=== PATIENT | female | born 1960 | race African-American/Black ===

== ENCOUNTER 2022-05-12 05:58 | Inpatient (IN) | payer MEDICARE, MEDICAID ==
[~2022-05-12] VITALS: Ht 177.8 cm; Wt 95.7 kg
[2022-05-12] MEDS ORDERED: BUME2TAB34 MT (08:00)
[2022-05-12] MEDS ORDERED: ATOR40TA70 PO (08:00)
[2022-05-12] MEDS ORDERED: ALBU2.5V13 NEB (08:00)
[2022-05-12] MEDS ORDERED: EZET-55 MT (08:00)
[2022-05-12] MEDS ORDERED: CHLO25TA2 PO (08:00)
[2022-05-12] MEDS ORDERED: METO-385 PO (08:00)
[2022-05-12] MEDS ORDERED: APIX5TAB PO (08:00)
[2022-05-12] MEDS ORDERED: LOSA1TAB37 MT (08:00)
[2022-05-12] MEDS ORDERED: DIGO250T79 PO (08:00)
[2022-05-12] MEDS ORDERED: PANT40TA51 PO (08:00)
[2022-05-12] MEDS ORDERED: SACU1TAB MT (08:00)
[2022-05-12] MEDS ORDERED: SPIR25TA PO (08:00)
[2022-05-12 08:07] LABS: BASOPHILS % 0.9 % (0.0-2.0); EOSINOPHILS % 1.1 % (0.0-5.0); HEMATOCRIT. 33.6 % (36.0-48.0); HEMOGLOBIN. 11.3 g/dL (12.0-16.0); LYMPHOCYTES % 21.1 % (20.0-50.0); MEAN CORPUSCULAR VOLUME 83.7 fL (81.0-99.0); MEAN PLATELET VOLUME 8.6 fl (7.4-10.4); NEUTROPHILS % 65.9 % (40.0-76.0); PLATELET 229 x1000/uL (130-400); RED BLOOD CELL COUNT 4.02 mill/uL (4.2-5.4); RED CELL DISTRIBUTION WIDTH 15.1 % (11.6-14.6)
[2022-05-12 08:16] LABS: INR 1.1; PROTHROMBIN TIME 11.4 sec (9.6-11.0)
[2022-05-12] MEDS ORDERED: SUCCINYLCHOLINE CHLORIDE 200MG/10ML IV ONE (08:26)
[2022-05-12] MEDS ORDERED: PHENYLEPHRINE HCL 10 MG/ML 1ML (IV VIAL) IV ONE (08:27)
[2022-05-12] MEDS ORDERED: PROPOFOL 200MG/20ML VIAL IV ONE (08:27)
[2022-05-12] MEDS ORDERED: ACETAMINOPHEN 500MG TABLET ONE (08:28)
[2022-05-12] MEDS ORDERED: CEFAZOLIN SODIUM 1000MG/VIAL ONE ×2 (08:35→10:06)
[2022-05-12] MEDS ORDERED: LIDOCAINE HCL/PF 1% 10 MG/ML 5ML VIAL ONE (08:35)
[2022-05-12] MEDS ORDERED: GENTAMICIN/NS IRRIGATION 500 ML IR ONE (08:36)
[2022-05-12] MEDS ORDERED: ONDANSETRON HCL 4MG/2ML INJ ONE (08:50)
[2022-05-12] MEDS ORDERED: IODIXANOL 320MG/ML 100 ML BOTTLE IV ONE (08:52)
[2022-05-12] MEDS ORDERED: GENTAMICIN SULF 40MG/ML 2ML VIAL ONE (12:10)
[2022-05-12] MEDS ORDERED: FENTANYL CITRATE/PF 50MCG/ML 2ML VIAL ONE (12:38)
[2022-05-12] MEDS ORDERED: HYDROCODONE/ACETAMINOPHEN 5/325MG TABLET PO PRN (12:45)
[2022-05-12] MEDS ORDERED: ALBUTEROL (0.083%) 2.5MG/3ML NEB INH PRN (12:45)
[2022-05-12] MEDS ORDERED: NALOXONE HCL 0.4MG/ML VIAL IV PRN (13:15)
[2022-05-12 15:45] VITALS: BP 130/68
[2022-05-12 16:00] VITALS: BP 130/68
[2022-05-12 18:00] VITALS: BP 122/66
[2022-05-12 20:00] VITALS: BP 121/59
[2022-05-12] MEDS ORDERED: POLYVINYL ALCOHOL OPHTH DROPS 15ML BOTHEYE PRN (21:00)
[2022-05-12] MEDS: ATORVASTATIN CALCIUM 40MG TABLET PO SCH (21:57)
[2022-05-12 22:00] VITALS: BP 120/76
[2022-05-12] MEDS: ISOSORB DINIT/HYDRALAZINE HCL 20/37.5MG TABLET PO SCH (23:00)
[2022-05-13] VITALS (14 sets, daily range): BP systolic 101–140; BP diastolic 45–73
[2022-05-13] MEDS: ISOSORB DINIT/HYDRALAZINE HCL 20/37.5MG TABLET PO SCH ×3 (05:18→21:54)
[2022-05-13 06:20] LABS: BASOPHILS % 0.4 % (0.0-2.0); EOSINOPHILS % 0.5 % (0.0-5.0); MEAN CORPUSCULAR HEMOGLOBIN 27.4 pg (28.0-32.0); MEAN CORPUSCULAR VOLUME 84.5 fL (81.0-99.0); MEAN PLATELET VOLUME 9.2 fl (7.4-10.4); MONOCYTES % 9.6 % (2.0-8.0); NEUTROPHILS % 70.5 % (40.0-76.0); PLATELET 208 x1000/uL (130-400); RED BLOOD CELL COUNT 4.03 mill/uL (4.2-5.4); RED CELL DISTRIBUTION WIDTH 15.4 % (11.6-14.6)
[2022-05-13] MEDS: METOPROLOL SUCCINATE 50MG ER TABLET PO SCH (09:00)
[2022-05-13] MEDS ORDERED: DIGOXIN 250MCG TABLET PO SCH ×2 (09:00→18:00)
[2022-05-13] MEDS: LOSARTAN POTASSIUM 100 MG TABLET PO SCH (09:00)
[2022-05-13] MEDS: SPIRONOLACTONE 25MG TABLET PO SCH (09:03)
[2022-05-13] MEDS: PANTOPRAZOLE 40MG DR TABLET PO SCH (09:03)
[2022-05-13] MEDS: APIXABAN 5 MG TABLET PO SCH ×2 (09:03→18:11)
[2022-05-13] MEDS: CHLORTHALIDONE 25MG TABLET PO SCH (13:46)
[2022-05-13] MEDS: ATORVASTATIN CALCIUM 40MG TABLET PO SCH (21:54)
[2022-05-14] VITALS (10 sets, daily range): BP systolic 104–130; BP diastolic 54–83
[2022-05-14] MEDS: ISOSORB DINIT/HYDRALAZINE HCL 20/37.5MG TABLET PO SCH ×2 (06:30→14:57)
[2022-05-14] MEDS: METOPROLOL SUCCINATE 50MG ER TABLET PO SCH (08:22)
[2022-05-14] MEDS: LOSARTAN POTASSIUM 100 MG TABLET PO SCH (08:22)
[2022-05-14] MEDS: PANTOPRAZOLE 40MG DR TABLET PO SCH (09:21)
[2022-05-14] MEDS: APIXABAN 5 MG TABLET PO SCH (09:21)
[2022-05-14] MEDS: CHLORTHALIDONE 25MG TABLET PO SCH (09:22)
[2022-05-14] MEDS: SPIRONOLACTONE 25MG TABLET PO SCH (09:22)
== END 2022-05-14 16:30 | DRG 222 ==
LOC: CCL 05:58 → 3WST 15:24
PROVIDERS: ADMIT Internal Medicine Clinical Cardiac Electrophysiology; ATTEND Internal Medicine Clinical Cardiac Electrophysiology
PROC: 4A023N6 Measurement of Cardiac Sampling and Pressure, Right Heart, Percutaneous Approach (ICD-10-PCS; principal; 2022-05-12)
PROC: 0JH609Z Insertion of Cardiac Resynchronization Defibrillator Pulse Generator into Chest Subcutaneous Tissue and Fascia, Open Approach (ICD-10-PCS; 2022-05-12)
PROC: 02HK3KZ Insertion of Defibrillator Lead into Right Ventricle, Percutaneous Approach (ICD-10-PCS; 2022-05-12)
PROC: 02H63KZ Insertion of Defibrillator Lead into Right Atrium, Percutaneous Approach (ICD-10-PCS; 2022-05-12)
PROC: 02HL3KZ Insertion of Defibrillator Lead into Left Ventricle, Percutaneous Approach (ICD-10-PCS; 2022-05-12)
PROC: B5171ZZ Fluoroscopy of Left Subclavian Vein using Low Osmolar Contrast (ICD-10-PCS; 2022-05-12)
DX: I11.0 Hypertensive heart disease with heart failure (principal); I50.23 Acute on chronic systolic (congestive) heart failure; I42.8 Other cardiomyopathies; I44.7 Left bundle-branch block, unspecified
CPT/HCPCS: 33225; 33249; 36415; 71045; 75820; 80048; 85025; 93005; 93451; 93641; 97162; 97166; A4565; C1769; C1882; C1887; C1892; C1893; C1898; C1899; C1900; J0330; J0690; J1580; J1644; J2370; J2405; J2704; J3010; J3490; Q9967

== ENCOUNTER 2022-05-14 16:33 | Inpatient (IN) | payer MEDICARE, MEDICAID ==
[~2022-05-14] VITALS: Ht 177.8 cm; Wt 96.6 kg
[2022-05-14 14:40] VITALS: BP 119/54
[~2022-05-14 16:33] MED LIST: ALBU2.5V13 NEB; APIX5TAB PO; ATOR40TA70 PO; BUME2TAB34 MT; CHLO25TA2 PO; DIGO250T79 PO; EZET-55 MT; LOSA1TAB37 MT; METO-385 PO; PANT40TA51 PO; SACU1TAB MT; SPIR25TA PO
[2022-05-14 18:51] VITALS: BP 119/54
[2022-05-14] MEDS ORDERED: NALOXONE HCL 0.4 MG/ML 1ML VIAL IV PRN (19:30)
[2022-05-14] MEDS ORDERED: HYDROCODONE/ACETAMINOPHEN 5/325MG TABLET PO PRN (19:30)
[2022-05-14] MEDS ORDERED: ALBUTEROL (0.083%) 2.5MG/3ML NEB HHN PRN (19:30)
[2022-05-14] MEDS ORDERED: NALOXONE HCL 0.4MG/ML VIAL IV PRN (19:45)
[2022-05-14 20:00] VITALS: BP 108/59
[2022-05-14] MEDS ORDERED: POLYVINYL ALCOHOL OPHTH DROPS 15ML BOTHEYE PRN (21:00)
[2022-05-14] MEDS: DIGOXIN 250MCG TABLET PO SCH (22:03)
[2022-05-14] MEDS: ATORVASTATIN CALCIUM 40MG TABLET PO SCH (22:03)
[2022-05-14] MEDS: APIXABAN 5 MG TABLET PO SCH (22:03)
[2022-05-14] MEDS: ISOSORB DINIT/HYDRALAZINE HCL 20/37.5MG TABLET PO SCH (22:07)
[2022-05-15 05:53] LABS: BASOPHILS % 1.2 % (0.0-2.0); HEMATOCRIT. 33.7 % (36.0-48.0); HEMOGLOBIN. 10.9 g/dL (12.0-16.0); LYMPHOCYTES % 19.4 % (20.0-50.0); MEAN CORPUSCULAR HEMOGLOBIN 27.4 pg (28.0-32.0); MEAN PLATELET VOLUME 9.5 fl (7.4-10.4); NEUTROPHILS % 65.4 % (40.0-76.0); PLATELET 157 x1000/uL (130-400); RED BLOOD CELL COUNT 3.97 mill/uL (4.2-5.4); RED CELL DISTRIBUTION WIDTH 15.4 % (11.6-14.6)
[2022-05-15 06:19] LABS: CHLORIDE 105 mEq/L (98-107)
[2022-05-15 06:30] LABS: PHOSPHORUS 3.5 mg/dL (2.5-4.9)
[2022-05-15] MEDS: ISOSORB DINIT/HYDRALAZINE HCL 20/37.5MG TABLET PO SCH ×3 (06:37→20:50)
[2022-05-15 08:00] VITALS: BP 106/62
[2022-05-15] MEDS: APIXABAN 5 MG TABLET PO SCH ×2 (08:58→17:16)
[2022-05-15] MEDS: PANTOPRAZOLE 40MG DR TABLET PO SCH (08:58)
[2022-05-15] MEDS: LOSARTAN POTASSIUM 100 MG TABLET PO SCH (08:59)
[2022-05-15] MEDS: CHLORTHALIDONE 25MG TABLET PO SCH (08:59)
[2022-05-15] MEDS: METOPROLOL SUCCINATE 50MG ER TABLET PO SCH (08:59)
[2022-05-15] MEDS: SPIRONOLACTONE 25MG TABLET PO SCH (08:59)
[2022-05-15] MEDS: DIGOXIN 250MCG TABLET PO SCH (17:16)
[2022-05-15 20:00] VITALS: BP 131/74
[2022-05-15] MEDS: ATORVASTATIN CALCIUM 40MG TABLET PO SCH (20:41)
[2022-05-16] MEDS ORDERED: METO-385 PO (04:32)
[2022-05-16] MEDS ORDERED: LIP40 PO (04:32)
[2022-05-16] MEDS ORDERED: DIGO125T80 PO (04:32)
[2022-05-16] MEDS ORDERED: CHLO25TA2 PO (04:32)
[2022-05-16] MEDS ORDERED: SPIR25TA6 PO (04:32)
[2022-05-16] MEDS ORDERED: PANT40SU PO (04:32)
[2022-05-16] MEDS ORDERED: LOSA25TA26 PO (04:32)
[2022-05-16] MEDS ORDERED: APIX5TAB PO (04:32)
[2022-05-16] MEDS: ISOSORB DINIT/HYDRALAZINE HCL 20/37.5MG TABLET PO SCH ×3 (05:27→20:56)
[2022-05-16 08:00] VITALS: BP 110/75
[2022-05-16] MEDS: APIXABAN 5 MG TABLET PO SCH ×2 (09:25→17:36)
[2022-05-16] MEDS: CHLORTHALIDONE 25MG TABLET PO SCH (09:26)
[2022-05-16] MEDS: METOPROLOL SUCCINATE 50MG ER TABLET PO SCH (09:26)
[2022-05-16] MEDS: SPIRONOLACTONE 25MG TABLET PO SCH (09:26)
[2022-05-16] MEDS: PANTOPRAZOLE 40MG DR TABLET PO SCH (09:26)
[2022-05-16] MEDS: LOSARTAN POTASSIUM 100 MG TABLET PO SCH (09:27)
[2022-05-16] MEDS: DIGOXIN 250MCG TABLET PO SCH (17:36)
[2022-05-16 20:00] VITALS: BP 100/52
[2022-05-16] MEDS: ATORVASTATIN CALCIUM 40MG TABLET PO SCH (20:56)
[2022-05-17] MEDS: ISOSORB DINIT/HYDRALAZINE HCL 20/37.5MG TABLET PO SCH ×3 (06:18→22:00)
[2022-05-17 07:16] LABS: DIGOXIN 1.9 ng/mL (0.9-2.0)
[2022-05-17 08:00] VITALS: BP 92/51
[2022-05-17] MEDS: PANTOPRAZOLE 40MG DR TABLET PO SCH (08:31)
[2022-05-17] MEDS: APIXABAN 5 MG TABLET PO SCH ×2 (08:31→17:10)
[2022-05-17] MEDS: METOPROLOL SUCCINATE 50MG ER TABLET PO SCH (08:32)
[2022-05-17] MEDS: LOSARTAN POTASSIUM 100 MG TABLET PO SCH (08:32)
[2022-05-17] MEDS: SPIRONOLACTONE 25MG TABLET PO SCH (08:32)
[2022-05-17] MEDS: CHLORTHALIDONE 25MG TABLET PO SCH (08:32)
[2022-05-17] MEDS: DIGOXIN 250MCG TABLET PO SCH (17:10)
[2022-05-17 20:00] VITALS: BP_SYST 101; BP_SYST 105; BP_DIAS 50; BP_DIAS 68
[2022-05-17] MEDS: ATORVASTATIN CALCIUM 40MG TABLET PO SCH (21:19)
[2022-05-18] MEDS: ISOSORB DINIT/HYDRALAZINE HCL 20/37.5MG TABLET PO SCH ×3 (03:11→21:39)
[2022-05-18 07:58] VITALS: BP 109/55
[2022-05-18] MEDS: SPIRONOLACTONE 25MG TABLET PO SCH (09:00)
[2022-05-18] MEDS: LOSARTAN POTASSIUM 100 MG TABLET PO SCH (09:00)
[2022-05-18] MEDS: METOPROLOL SUCCINATE 50MG ER TABLET PO SCH (09:00)
[2022-05-18] MEDS: APIXABAN 5 MG TABLET PO SCH ×2 (09:41→16:48)
[2022-05-18] MEDS: PANTOPRAZOLE 40MG DR TABLET PO SCH (09:42)
[2022-05-18] MEDS: CHLORTHALIDONE 25MG TABLET PO SCH (09:42)
[2022-05-18] MEDS: DIGOXIN 250MCG TABLET PO SCH (17:26)
[2022-05-18 19:54] VITALS: BP 126/76
[2022-05-18] MEDS: ATORVASTATIN CALCIUM 40MG TABLET PO SCH (21:39)
[2022-05-19] MEDS: ISOSORB DINIT/HYDRALAZINE HCL 20/37.5MG TABLET PO SCH ×3 (06:00→22:47)
[2022-05-19 08:00] VITALS: BP 120/68
[2022-05-19] MEDS: PANTOPRAZOLE 40MG DR TABLET PO SCH (08:19)
[2022-05-19] MEDS: APIXABAN 5 MG TABLET PO SCH ×2 (08:19→17:08)
[2022-05-19] MEDS: SPIRONOLACTONE 25MG TABLET PO SCH (08:19)
[2022-05-19] MEDS: METOPROLOL SUCCINATE 50MG ER TABLET PO SCH (08:19)
[2022-05-19] MEDS: LOSARTAN POTASSIUM 100 MG TABLET PO SCH (08:19)
[2022-05-19] MEDS: CHLORTHALIDONE 25MG TABLET PO SCH (08:20)
[2022-05-19] MEDS ORDERED: INSULIN REGULAR (HUMULIN R) UD 100 UNITS/ML SYR IV NR (10:00)
[2022-05-19] MEDS ORDERED: DEXTROSE 50% WATER 50ML SYRINGE IV NR (10:00)
[2022-05-19] MEDS: DIGOXIN 250MCG TABLET PO SCH (17:08)
[2022-05-19 20:00] VITALS: BP 97/47
[2022-05-19] MEDS: ATORVASTATIN CALCIUM 40MG TABLET PO SCH (20:49)
[2022-05-20] MEDS: ISOSORB DINIT/HYDRALAZINE HCL 20/37.5MG TABLET PO SCH ×3 (06:00→21:03)
[2022-05-20 08:00] VITALS: BP 104/64
[2022-05-20 08:00] LABS: DIGOXIN 1.6 ng/mL (0.9-2.0)
[2022-05-20] MEDS: LOSARTAN POTASSIUM 100 MG TABLET PO SCH (08:10)
[2022-05-20] MEDS: METOPROLOL SUCCINATE 50MG ER TABLET PO SCH (08:10)
[2022-05-20] MEDS: SPIRONOLACTONE 25MG TABLET PO SCH (08:10)
[2022-05-20] MEDS: FAMOTIDINE 20MG TABLET PO SCH (08:11)
[2022-05-20] MEDS: CHLORTHALIDONE 25MG TABLET PO SCH (08:11)
[2022-05-20] MEDS: APIXABAN 5 MG TABLET PO SCH ×2 (08:11→17:13)
[2022-05-20] MEDS: DIGOXIN 250MCG TABLET PO SCH (17:13)
[2022-05-20] MEDS: ATORVASTATIN CALCIUM 40MG TABLET PO SCH (21:03)
[2022-05-20 22:01] VITALS: BP 119/73
[2022-05-21] MEDS: ISOSORB DINIT/HYDRALAZINE HCL 20/37.5MG TABLET PO SCH ×3 (06:54→21:24)
[2022-05-21 08:00] VITALS: BP 104/71
[2022-05-21] MEDS: APIXABAN 5 MG TABLET PO SCH ×2 (09:18→17:14)
[2022-05-21] MEDS: FAMOTIDINE 20MG TABLET PO SCH (09:18)
[2022-05-21] MEDS: LOSARTAN POTASSIUM 100 MG TABLET PO SCH (09:19)
[2022-05-21] MEDS: METOPROLOL SUCCINATE 50MG ER TABLET PO SCH (09:19)
[2022-05-21] MEDS: CHLORTHALIDONE 25MG TABLET PO SCH (09:19)
[2022-05-21] MEDS: SPIRONOLACTONE 25MG TABLET PO SCH (09:19)
[2022-05-21] MEDS: DIGOXIN 250MCG TABLET PO SCH (17:14)
[2022-05-21 19:40] VITALS: BP 109/58
[2022-05-21] MEDS: ATORVASTATIN CALCIUM 40MG TABLET PO SCH (21:24)
[2022-05-22] MEDS: ISOSORB DINIT/HYDRALAZINE HCL 20/37.5MG TABLET PO SCH ×3 (05:50→20:15)
[2022-05-22 08:00] VITALS: BP 118/60
[2022-05-22] MEDS: FAMOTIDINE 20MG TABLET PO SCH (09:06)
[2022-05-22] MEDS: APIXABAN 5 MG TABLET PO SCH ×2 (09:07→17:16)
[2022-05-22] MEDS: LOSARTAN POTASSIUM 100 MG TABLET PO SCH (09:07)
[2022-05-22] MEDS: CHLORTHALIDONE 25MG TABLET PO SCH (09:07)
[2022-05-22] MEDS: SPIRONOLACTONE 25MG TABLET PO SCH (09:07)
[2022-05-22] MEDS: METOPROLOL SUCCINATE 50MG ER TABLET PO SCH (09:08)
[2022-05-22] MEDS: DIGOXIN 250MCG TABLET PO SCH (17:16)
[2022-05-22 20:00] VITALS: BP 99/44
[2022-05-22] MEDS: ATORVASTATIN CALCIUM 40MG TABLET PO SCH (20:15)
[2022-05-22 20:21] VITALS: BP 99/44
[2022-05-23] MEDS: ISOSORB DINIT/HYDRALAZINE HCL 20/37.5MG TABLET PO SCH (05:23)
[2022-05-23 08:00] VITALS: BP 103/65
[2022-05-23] MEDS: METOPROLOL SUCCINATE 50MG ER TABLET PO SCH (08:33)
[2022-05-23] MEDS: LOSARTAN POTASSIUM 100 MG TABLET PO SCH (08:33)
[2022-05-23] MEDS: SPIRONOLACTONE 25MG TABLET PO SCH (08:34)
[2022-05-23] MEDS: APIXABAN 5 MG TABLET PO SCH (08:39)
[2022-05-23] MEDS: CHLORTHALIDONE 25MG TABLET PO SCH (08:39)
[2022-05-23] MEDS: FAMOTIDINE 20MG TABLET PO SCH (08:39)
[2022-05-23 08:53] VITALS: BP 103/65
== END 2022-05-23 12:30 | disposition home health service (06) | DRG 291 ==
PROVIDERS: ADMIT Psychiatry & Neurology Neurology; ATTEND Hospitalist
DX: I13.0 Hypertensive heart and chronic kidney disease with heart failure and stage 1 through stage 4 chronic kidney disease, or unspecified chronic kidney disease (principal); I50.23 Acute on chronic systolic (congestive) heart failure; N17.9 Acute kidney failure, unspecified; E87.1 Hypo-osmolality and hyponatremia; I69.354 Hemiplegia and hemiparesis following cerebral infarction affecting left non-dominant side; D63.8 Anemia in other chronic diseases classified elsewhere; I42.0 Dilated cardiomyopathy; T50.2X5A Adverse effect of carbonic-anhydrase inhibitors, benzothiadiazides and other diuretics, initial encounter; I44.7 Left bundle-branch block, unspecified; E87.5 Hyperkalemia; N18.32 Chronic kidney disease, stage 3b; Z95.810 Presence of automatic (implantable) cardiac defibrillator; Z79.899 Other long term (current) drug therapy; Z91.81 History of falling; Y92.89 Other specified places as the place of occurrence of the external cause
CPT/HCPCS: 36415; 80048; 80053; 80162; 82962; 83735; 84100; 85025; 93970; 97110; 97112; 97116; 97150; 97162; 97166; 97530; 97535; J1815

== ENCOUNTER 2022-10-15 18:29 | Inpatient (IN) | payer MEDICARE, MEDICAID ==
[~2022-10-15] VITALS: Ht 157.5 cm; Wt 102.1 kg
[~2022-10-15 18:29] MED LIST changes: -ALBU2.5V13 NEB; -ATOR40TA70 PO; -BUME2TAB34 MT; +DIGO125T80 PO; -DIGO250T79 PO; -EZET-55 MT; +LIP40 PO; -LOSA1TAB37 MT; +LOSA25TA26 PO; +PANT40SU PO; -PANT40TA51 PO; -SACU1TAB MT; -SPIR25TA PO; +SPIR25TA6 PO
[2022-10-15] MEDS ORDERED: SODIUM CHLORIDE 0.9% 1,000 ML IV ONE (21:00)
[2022-10-15 23:47] LABS: CHLORIDE 102 mEq/L (98-107); HEMATOCRIT. 44.7 % (36.0-48.0); HEMOGLOBIN. 13.8 g/dL (12.0-16.0); MEAN CORPUSCULAR VOLUME 83.9 fL (81.0-99.0); MEAN PLATELET VOLUME 9.5 fl (7.4-10.4); PLATELET 200 x1000/uL (130-400); RED BLOOD CELL COUNT 5.32 mill/uL (4.2-5.4); RED CELL DISTRIBUTION WIDTH 17.5 % (11.6-14.6)
[2022-10-16] MEDS ORDERED: ASPIRIN 325MG TABLET PO ONE (00:30)
[2022-10-16] MEDS ORDERED: SODIUM POLYSTYRENE SULFONATE 15 G/60 ML BOT PO NR (06:30)
[2022-10-16] MEDS ORDERED: ACETAMINOPHEN 325MG TABLET PO PRN (06:30)
[2022-10-16] MEDS ORDERED: MAGNESIUM/ALUMINUM HYDROXIDE/SIMETHICONE 30ML UDC PO PRN (06:30)
[2022-10-16] MEDS ORDERED: DOCUSATE SODIUM 100MG CAPSULE PO PRN (06:30)
[2022-10-16] MEDS ORDERED: GUAIFENESIN 200MG/10ML SUGAR FREE UDC PO PRN (06:30)
[2022-10-16] MEDS ORDERED: TRAMADOL 50MG TABLET PO PRN (06:30)
[2022-10-16] MEDS ORDERED: ONDANSETRON HCL 4MG/2ML INJ IV PRN (06:30)
[2022-10-16 06:37] LABS: PLATELET ESTIMATE NORMAL
[2022-10-16] MEDS ORDERED: DIGOXIN 125MCG TABLET PO SCH (09:00)
[2022-10-16] MEDS ORDERED: CHLORTHALIDONE 25MG TABLET PO SCH (09:00)
[2022-10-16] MEDS ORDERED: LOSARTAN POTASSIUM 25 MG TABLET PO SCH (09:00)
[2022-10-16] MEDS ORDERED: METOPROLOL SUCCINATE 50MG ER TABLET PO SCH (09:00)
[2022-10-16 11:00] VITALS: BP 139/77
[2022-10-16] MEDS ORDERED: NALOXONE HCL 0.4MG/ML VIAL IV PRN (12:00)
[2022-10-16] MEDS: FUROSEMIDE 40MG/4ML VIAL IVP SCH ×2 (12:08→17:31)
[2022-10-16] MEDS: APIXABAN 5 MG TABLET PO SCH ×2 (12:09→17:31)
[2022-10-16] MEDS: PANTOPRAZOLE 40MG DR TABLET PO SCH (12:09)
[2022-10-16] MEDS: SPIRONOLACTONE 25MG TABLET PO SCH (12:10)
[2022-10-16] MEDS: CHLORTHALIDONE 25MG TABLET PO SCH (15:04)
[2022-10-16] MEDS: DIGOXIN 125MCG TABLET PO SCH (17:31)
[2022-10-16 20:37] LABS: CLARITY URINE CLEAR (CLEAR); COLOR URINE YELLOW (YELLOW); KETONES URINE NEGATIVE (NEGATIVE); LEUKOCYTE ESTERASE URINE NEGATIVE (NEGATIVE); NITRITE URINE NEGATIVE (NEGATIVE); OCCULT BLOOD URINE NEGATIVE (NEGATIVE); PROTEIN URINE NEGATIVE (NEGATIVE); SPECIFIC GRAVITY URINE 1.009 (1.005-1.030); UROBILINOGEN URINE 0.2 E.U./dL (0.2-1.0)
[2022-10-16 21:00] VITALS: BP 94/69
[2022-10-16] MEDS: CARVEDILOL 6.25 MG TABLET PO SCH (21:00)
[2022-10-16] MEDS: ATORVASTATIN CALCIUM 40MG TABLET PO SCH (21:49)
[2022-10-17] VITALS (8 sets, daily range): BP systolic 78–121; BP diastolic 47–83
[2022-10-17] MEDS ORDERED: DEXTROSE 50% WATER 50ML SYRINGE IV PRN
[2022-10-17] MEDS: BLOOD SUGAR DIAGNOSTIC STRIP TEST SCH ×4 (05:58→21:30)
[2022-10-17] MEDS: PANTOPRAZOLE 40MG DR TABLET PO SCH (06:13)
[2022-10-17] MEDS: INSULIN LISPRO 100 UNITS/ML SUBCUT SCH ×4 (07:20→21:00)
[2022-10-17 07:42] LABS: HEMATOCRIT. 38.2 % (36.0-48.0); HEMOGLOBIN. 12.2 g/dL (12.0-16.0); MEAN CORPUSCULAR HEMOGLOBIN 26.5 pg (28.0-32.0); MEAN CORPUSCULAR VOLUME 83.1 fL (81.0-99.0); MEAN PLATELET VOLUME 10.1 fl (7.4-10.4); PLATELET 177 x1000/uL (130-400); RED BLOOD CELL COUNT 4.59 mill/uL (4.2-5.4); RED CELL DISTRIBUTION WIDTH 16.5 % (11.6-14.6)
[2022-10-17 07:51] LABS: CHLORIDE 103 mEq/L (98-107)
[2022-10-17 08:13] LABS: CREATINE KINASE 516 IU/L (26-192); DIGOXIN 0.4 ng/mL (0.9-2.0); HDL CHOLESTEROL 52 mg/dL (40-59); LDL CHOLESTEROL 91 mg/dL (5-100); PHOSPHORUS 3.6 mg/dL (2.5-4.9)
[2022-10-17 08:56] LABS: PLATELET ESTIMATE NORMAL
[2022-10-17] MEDS: CHLORTHALIDONE 25MG TABLET PO SCH (09:00)
[2022-10-17] MEDS: CARVEDILOL 6.25 MG TABLET PO SCH ×2 (09:00→21:00)
[2022-10-17] MEDS: APIXABAN 5 MG TABLET PO SCH ×2 (10:14→17:21)
[2022-10-17] MEDS: SPIRONOLACTONE 25MG TABLET PO SCH (10:14)
[2022-10-17] MEDS: FUROSEMIDE 40MG/4ML VIAL IVP SCH ×2 (10:14→17:21)
[2022-10-17] MEDS: DIGOXIN 125MCG TABLET PO SCH (17:20)
[2022-10-17] MEDS: ATORVASTATIN CALCIUM 40MG TABLET PO SCH (21:42)
[2022-10-18] VITALS (7 sets, daily range): BP systolic 100–122; BP diastolic 60–86
[2022-10-18] MEDS: PANTOPRAZOLE 40MG DR TABLET PO SCH (06:47)
[2022-10-18] MEDS: BLOOD SUGAR DIAGNOSTIC STRIP TEST SCH ×4 (06:59→20:37)
[2022-10-18 07:02] LABS: EOSINOPHILS % 0.2 % (0.0-5.0); HEMATOCRIT. 37.1 % (36.0-48.0); LYMPHOCYTES % 37.1 % (20.0-50.0); MEAN CORPUSCULAR HEMOGLOBIN 26.1 pg (28.0-32.0); MEAN CORPUSCULAR VOLUME 80.5 fL (81.0-99.0); MEAN PLATELET VOLUME 10.3 fl (7.4-10.4); MONOCYTES % 13.7 % (2.0-8.0); PLATELET 169 x1000/uL (130-400); RED BLOOD CELL COUNT 4.61 mill/uL (4.2-5.4); RED CELL DISTRIBUTION WIDTH 16.1 % (11.6-14.6)
[2022-10-18] MEDS: INSULIN LISPRO 100 UNITS/ML SUBCUT SCH ×4 (07:20→20:37)
[2022-10-18 07:50] LABS: CHLORIDE 103 mEq/L (98-107)
[2022-10-18 08:06] LABS: PHOSPHORUS 3.5 mg/dL (2.5-4.9)
[2022-10-18] MEDS: FUROSEMIDE 40MG/4ML VIAL IVP SCH ×2 (08:43→17:34)
[2022-10-18] MEDS: APIXABAN 5 MG TABLET PO SCH ×2 (08:43→17:34)
[2022-10-18] MEDS: CARVEDILOL 6.25 MG TABLET PO SCH ×2 (08:43→20:36)
[2022-10-18] MEDS: SPIRONOLACTONE 25MG TABLET PO SCH (08:44)
[2022-10-18] MEDS: DIGOXIN 125MCG TABLET PO SCH (17:34)
[2022-10-18] MEDS: ATORVASTATIN CALCIUM 40MG TABLET PO SCH (20:36)
[2022-10-19 00:07] VITALS: BP 120/81
[2022-10-19 04:09] VITALS: BP 139/68
[2022-10-19] MEDS: BLOOD SUGAR DIAGNOSTIC STRIP TEST SCH ×2 (06:01→11:50)
[2022-10-19] MEDS: PANTOPRAZOLE 40MG DR TABLET PO SCH (06:01)
[2022-10-19 06:35] LABS: HEMATOCRIT. 40.3 % (36.0-48.0); MEAN CORPUSCULAR HEMOGLOBIN 26.4 pg (28.0-32.0); MEAN CORPUSCULAR VOLUME 81.4 fL (81.0-99.0); MEAN PLATELET VOLUME 9.8 fl (7.4-10.4); PLATELET 184 x1000/uL (130-400); RED BLOOD CELL COUNT 4.95 mill/uL (4.2-5.4); RED CELL DISTRIBUTION WIDTH 15.7 % (11.6-14.6)
[2022-10-19] MEDS: INSULIN LISPRO 100 UNITS/ML SUBCUT SCH ×2 (07:20→12:20)
[2022-10-19 07:57] LABS: PHOSPHORUS 3.2 mg/dL (2.5-4.9)
[2022-10-19 08:00] VITALS: BP 101/68
[2022-10-19] MEDS ORDERED: FUROSEMIDE 40MG TABLET PO SCH (09:00)
[2022-10-19] MEDS: CARVEDILOL 6.25 MG TABLET PO SCH (09:00)
[2022-10-19 09:07] LABS: IMMUNOGLOBULIN A 411 mg/dL (87-352); IMMUNOGLOBULIN G 1785 mg/dL (586-1602); IMMUNOGLOBULIN M 145 mg/dL (26-217)
[2022-10-19] MEDS: APIXABAN 5 MG TABLET PO SCH (10:19)
[2022-10-19] MEDS: SPIRONOLACTONE 25MG TABLET PO SCH (10:19)
[2022-10-19 13:45] VITALS: BP 114/63
[2022-10-19 21:14] LABS: PLATELET ESTIMATE NORMAL
[2022-10-20] MEDS ORDERED: FAMOTIDINE 20MG TABLET PO SCH (09:00)
== END 2022-10-19 18:39 | disposition home health service (06) | DRG 291 ==
LOC: ER 18:29 → MICUSO 10-16 01:22 → EDBEDREQ 10-16 02:44 → EDBEDREQTM 10-16 02:44 → 3WST 10-16 11:40
PROVIDERS: ADMIT Hospitalist; ATTEND Hospitalist
DX: I13.0 Hypertensive heart and chronic kidney disease with heart failure and stage 1 through stage 4 chronic kidney disease, or unspecified chronic kidney disease (principal); I50.23 Acute on chronic systolic (congestive) heart failure; J96.90 Respiratory failure, unspecified, unspecified whether with hypoxia or hypercapnia; N17.9 Acute kidney failure, unspecified; I48.20 Chronic atrial fibrillation, unspecified; I69.354 Hemiplegia and hemiparesis following cerebral infarction affecting left non-dominant side; E87.1 Hypo-osmolality and hyponatremia; G93.40 Encephalopathy, unspecified; Z68.41 Body mass index [BMI] 40.0-44.9, adult; E11.22 Type 2 diabetes mellitus with diabetic chronic kidney disease; E66.9 Obesity, unspecified; E87.5 Hyperkalemia; N18.30 Chronic kidney disease, stage 3 unspecified; I42.9 Cardiomyopathy, unspecified; I25.10 Atherosclerotic heart disease of native coronary artery without angina pectoris; R79.89 Other specified abnormal findings of blood chemistry; E78.5 Hyperlipidemia, unspecified; Z79.01 Long term (current) use of anticoagulants; Z79.899 Other long term (current) drug therapy; Z95.810 Presence of automatic (implantable) cardiac defibrillator; Z82.49 Family history of ischemic heart disease and other diseases of the circulatory system
CPT/HCPCS: 36415; 71045; 76770; 80048; 80053; 80061; 80162; 81003; 82550; 82784; 82962; 83036; 83735; 83880; 84100; 84484; 85025; 86334; 93005; 93306; 93970; 97162; 99285; J1940; J7030; A4315

== ENCOUNTER 2023-03-20 14:16 | Inpatient (IN) | payer MEDICARE, MEDICAID ==
[~2023-03-20] VITALS: Ht 167.6 cm; Wt 80.7 kg
[2023-03-20] MEDS ORDERED: FUROSEMIDE 40MG/4ML VIAL IV ONE (14:30)
[2023-03-20] MEDS ORDERED: SODIUM CHLORIDE 0.9% 250 ML IV ONE (14:30)
[2023-03-20] MEDS ORDERED: ASPIRIN 81MG TABLET PO ONE (14:30)
[2023-03-20 17:36] LABS: BASOPHILS % 1.1 % (0.0-2.0); EOSINOPHILS % 8.3 % (0.0-5.0); HEMATOCRIT. 39.9 % (36.0-48.0); HEMOGLOBIN. 12.8 g/dL (12.0-16.0); LYMPHOCYTES % 24.2 % (20.0-50.0); MEAN CORPUSCULAR HEMOGLOBIN 26.5 pg (28.0-32.0); MEAN CORPUSCULAR HGB CONC 32.1 g/dL (31.0-37.0); MEAN CORPUSCULAR VOLUME 82.7 fL (81.0-99.0); MEAN PLATELET VOLUME 9.6 fl (7.4-10.4); MONOCYTES % 13.1 % (2.0-8.0); NEUTROPHILS % 53.3 % (40.0-76.0); PLATELET 163 x1000/uL (130-400); RED BLOOD CELL COUNT 4.83 mill/uL (4.2-5.4); RED CELL DISTRIBUTION WIDTH 18.3 % (11.6-14.6)
[2023-03-20 17:50] LABS: INR 1.5; PARTIAL THROMBOPLASTIN TIME 29.4 sec (23.4-31.0); PROTHROMBIN TIME 15.9 sec (9.6-11.0)
[2023-03-20 17:52] LABS: CHLORIDE 114 mEq/L (98-107); INDEX HEMOLYSI 4 (1-3); INDEX ICTERIC 1 (1-4); INDEX LIPEMIC 1 (1-3); SODIUM 140 mEq/L (136-145)
[2023-03-20 17:59] LABS: POTASSIUM 4.4 mEq/L (3.5-5.1)
[2023-03-20 18:13] LABS: ALANINE AMINOTRANSFERASE 49 IU/L (13-61); ASPARTATE AMINOTRANSFERASE 61 IU/L (15-37); BILIRUBIN TOTAL 1.3 mg/dL (0.1-1.0); CALCIUM 8.1 mg/dL (8.5-10.1); CARBON DIOXIDE 19 mEq/L (21-32); CREATININE 2.5 mg/dL (0.6-1.3); GLUCOSE 98 mg/dL (70-105); NT PRO B-TYPE NATRIURETIC PEP 34461 pg/mL (5-125); PROTEIN TOTAL 7.3 g/dL (6.0-8.3); UREA NITROGEN BLOOD 71 mg/dL (7-21)
[2023-03-20 18:21] LABS: TROPONIN I HIGH SENSITIVITY 135 ng/L (<54)
[2023-03-20 18:36] LABS: DIGOXIN 1.4 ng/mL (0.9-2.0)
[2023-03-20] MEDS ORDERED: ONDANSETRON HCL 4MG/2ML INJ IV PRN (19:00)
[2023-03-20] MEDS ORDERED: CLONIDINE 0.1MG TABLET PO PRN (19:00)
[2023-03-20] MEDS ORDERED: ENOXAPARIN 40MG/0.4ML SYR SUBCUT SCH (19:00)
[2023-03-20] MEDS ORDERED: ENOXAPARIN 30MG/0.3ML SYR SUBCUT SCH (20:00)
[2023-03-20] MEDS: DIGOXIN 125MCG TABLET PO SCH (20:00)
[2023-03-20] MEDS: LOSARTAN POTASSIUM 25 MG TABLET PO SCH (20:00)
[2023-03-20 21:32] LABS: TROPONIN I HIGH SENSITIVITY 145 ng/L (<54)
[2023-03-20] MEDS: ATORVASTATIN CALCIUM 40MG TABLET PO SCH (21:56)
[2023-03-21 01:29] LABS: CLARITY URINE CLOUDY (CLEAR); COLOR URINE YELLOW (YELLOW); GLUCOSE URINE NEGATIVE (NEGATIVE); KETONES URINE NEGATIVE (NEGATIVE); LEUKOCYTE ESTERASE URINE TRACE (NEGATIVE); NITRITE URINE NEGATIVE (NEGATIVE); OCCULT BLOOD URINE 1+ (NEGATIVE); PROTEIN URINE 1+ (NEGATIVE); SPECIFIC GRAVITY URINE 1.011 (1.005-1.030)
[2023-03-21 01:50] VITALS: BP 127/94; PULSE 67; RESP 20; TEMP 96.3
[2023-03-21 02:08] LABS: *AMPHETAMINES SCREEN URINE NEGATIVE (NEGATIVE); *BARBITURATES SCREEN URINE NEGATIVE (NEGATIVE); *BENZODIAZEPINES SCREEN URINE NEGATIVE (NEGATIVE); *COCAINE SCREEN URINE NEGATIVE (NEGATIVE); CANNABINOID URINE SCREEN NEGATIVE (NEGATIVE); ECSTASY MDMA SCREEN URINE NEGATIVE (NEGATIVE); METHADONE URINE SCREEN NEGATIVE (NEGATIVE); OPIATES URINE SCREEN NEGATIVE (NEGATIVE); PHENCYCLIDINE URINE SCREEN NEGATIVE (NEGATIVE)
[2023-03-21] MEDS ORDERED: FUROSEMIDE 40MG/4ML VIAL ONE (02:37)
[2023-03-21] MEDS ORDERED: FUROSEMIDE 40MG/4ML VIAL IVP NR (02:45)
[2023-03-21 03:16] LABS: SQUAMOUS EPITHELIAL CELL URINE 1+ /lpf (RARE/1+)
[2023-03-21 03:19] LABS: BACTERIA URINE 2+
[2023-03-21] MEDS ORDERED: CEFTRIAXONE 1GM PREMIX 50 ML IV SCH (06:00)
[2023-03-21] MEDS: CEFTRIAXONE 1,000 MG in DEXTROSE 5% WATER 50 ML IV SCH (06:17)
[2023-03-21 08:00] VITALS: BP 123/94; PULSE 106; RESP 15; TEMP 96.8
[2023-03-21] MEDS: FUROSEMIDE 40MG/4ML VIAL IVP SCH ×2 (08:29→16:46)
[2023-03-21] MEDS: APIXABAN 5 MG TABLET PO SCH ×2 (08:29→16:46)
[2023-03-21] MEDS: METOPROLOL SUCCINATE 50MG ER TABLET PO SCH (08:30)
[2023-03-21] MEDS: LOSARTAN POTASSIUM 25 MG TABLET PO SCH (08:30)
[2023-03-21] MEDS: POTASSIUM CHLORIDE 20MEQ TABLET SR PO SCH ×2 (08:47→16:46)
[2023-03-21] MEDS ORDERED: POTASSIUM CHLORIDE 20MEQ TABLET SR PO SCH (09:00)
[2023-03-21 09:31] LABS: POTASSIUM 4.1 mEq/L (3.5-5.1)
[2023-03-21 09:43] LABS: CALCIUM 8.7 mg/dL (8.5-10.1); CREATININE 2.4 mg/dL (0.6-1.3)
[2023-03-21 12:00] VITALS: BP 126/93; PULSE 113; RESP 15; TEMP 97.9
[2023-03-21 16:00] VITALS: BP 113/77; PULSE 66; RESP 17; TEMP 96.5
[2023-03-21] MEDS: DIGOXIN 125MCG TABLET PO SCH (16:46)
[2023-03-21 20:00] VITALS: BP 108/63; PULSE 65; RESP 18; TEMP 97.8
[2023-03-21] MEDS: ATORVASTATIN CALCIUM 40MG TABLET PO SCH (20:39)
[2023-03-21 20:42] VITALS: PULSE 60; RESP 16; O2SAT 99
[2023-03-21] MEDS: IPRATROPIUM/ALBUTEROL 0.5-3(2.5)MG/3ML NEB HHN SCH (20:42)
[2023-03-22] VITALS (11 sets, daily range): BP systolic 101–116; BP diastolic 68–77; PULSE 69–128; RESP 16–19; TEMP 96.6–98.5; O2SAT 97–98
[2023-03-22] MEDS: IPRATROPIUM/ALBUTEROL 0.5-3(2.5)MG/3ML NEB HHN SCH ×6 (00:40→20:57)
[2023-03-22] MEDS: APIXABAN 5 MG TABLET PO SCH ×2 (08:27→17:04)
[2023-03-22] MEDS: POTASSIUM CHLORIDE 20MEQ TABLET SR PO SCH ×2 (08:27→17:04)
[2023-03-22] MEDS: LOSARTAN POTASSIUM 25 MG TABLET PO SCH (08:27)
[2023-03-22] MEDS: METOPROLOL SUCCINATE 50MG ER TABLET PO SCH (08:27)
[2023-03-22] MEDS: FUROSEMIDE 40MG/4ML VIAL IVP SCH (08:28)
[2023-03-22] MEDS: CEFTRIAXONE 1,000 MG in DEXTROSE 5% WATER 50 ML IV SCH (08:30)
[2023-03-22] MEDS: DIGOXIN 125MCG TABLET PO SCH (17:04)
[2023-03-22] MEDS: ATORVASTATIN CALCIUM 40MG TABLET PO SCH (20:57)
[2023-03-23] VITALS (10 sets, daily range): BP systolic 109–134; BP diastolic 71–87; PULSE 77–131; RESP 16–20; TEMP 97.9–98.6; O2SAT 94
[2023-03-23] MEDS: IPRATROPIUM/ALBUTEROL 0.5-3(2.5)MG/3ML NEB HHN SCH ×6 (00:08→20:00)
[2023-03-23] MEDS: POTASSIUM CHLORIDE 20MEQ TABLET SR PO SCH ×2 (08:49→17:34)
[2023-03-23] MEDS: APIXABAN 5 MG TABLET PO SCH ×2 (08:49→17:34)
[2023-03-23] MEDS: METOPROLOL SUCCINATE 50MG ER TABLET PO SCH (08:49)
[2023-03-23] MEDS: CEFTRIAXONE 1,000 MG in DEXTROSE 5% WATER 50 ML IV SCH (08:49)
[2023-03-23] MEDS: LOSARTAN POTASSIUM 25 MG TABLET PO SCH (08:54)
[2023-03-23] MEDS ORDERED: FUROSEMIDE 40MG/4 ML UDC PO SCH (09:00)
[2023-03-23] MEDS: DIGOXIN 125MCG TABLET PO SCH (17:35)
[2023-03-23] MEDS: FUROSEMIDE 40MG/4 ML UDC PO SCH (17:35)
[2023-03-23] MEDS: DILTIAZEM HCL 60MG TABLET PO SCH (17:36)
[2023-03-23] MEDS ORDERED: ZOLPIDEM TARTRATE 5MG TABLET PO PRN (22:15)
[2023-03-23] MEDS: ATORVASTATIN CALCIUM 40MG TABLET PO SCH (22:16)
[2023-03-23] MEDS: CARVEDILOL 12.5MG TABLET PO SCH (22:17)
[2023-03-23 22:25] LABS: CALCIUM 8.7 mg/dL (8.5-10.1); CREATININE 2.1 mg/dL (0.6-1.3); PHOSPHORUS 3.7 mg/dL (2.5-4.9)
[2023-03-23 22:32] LABS: DIFFERENTIAL COMMENT 0; EOSINOPHILS % 10.9 % (0.0-5.0); HEMATOCRIT. 43.2 % (36.0-48.0); HEMOGLOBIN. 14.4 g/dL (12.0-16.0); LYMPHOCYTES % 16.1 % (20.0-50.0); MEAN CORPUSCULAR HEMOGLOBIN 28.3 pg (28.0-32.0); MEAN CORPUSCULAR HGB CONC 33.3 g/dL (31.0-37.0); MEAN CORPUSCULAR VOLUME 85.1 fL (81.0-99.0); MEAN PLATELET VOLUME 10.3 fl (7.4-10.4); MONOCYTES % 14.5 % (2.0-8.0); NEUTROPHILS % 57.5 % (40.0-76.0); PLATELET 149 x1000/uL (130-400); RED BLOOD CELL COUNT 5.07 mill/uL (4.2-5.4); RED CELL DISTRIBUTION WIDTH 18.5 % (11.6-14.6); WHITE BLOOD COUNT 5.1 x1000/uL (4.5-11.0)
[2023-03-23 22:39] LABS: POTASSIUM 5.6 mEq/L (3.5-5.1)
[2023-03-24] VITALS (9 sets, daily range): BP systolic 120–182; BP diastolic 75–120; PULSE 65–128; RESP 18–24; TEMP 97–97.9; O2SAT 95
[2023-03-24] MEDS: IPRATROPIUM/ALBUTEROL 0.5-3(2.5)MG/3ML NEB HHN SCH ×6 (00:09→21:21)
[2023-03-24] MEDS: DILTIAZEM HCL 60MG TABLET PO SCH ×4 (01:16→17:56)
[2023-03-24] MEDS: POTASSIUM CHLORIDE 20MEQ TABLET SR PO SCH (09:22)
[2023-03-24] MEDS: APIXABAN 5 MG TABLET PO SCH ×2 (09:22→17:57)
[2023-03-24] MEDS: CARVEDILOL 12.5MG TABLET PO SCH ×2 (09:22→21:55)
[2023-03-24] MEDS: FUROSEMIDE 40MG/4 ML UDC PO SCH ×2 (09:25→17:57)
[2023-03-24] MEDS: CEFTRIAXONE 1,000 MG in DEXTROSE 5% WATER 50 ML IV SCH (10:01)
[2023-03-24] MEDS: DIGOXIN 125MCG TABLET PO SCH (17:56)
[2023-03-24] MEDS: ATORVASTATIN CALCIUM 40MG TABLET PO SCH (21:55)
[2023-03-25] VITALS (11 sets, daily range): BP systolic 93–112; BP diastolic 56–76; PULSE 64–125; RESP 18–23; TEMP 97–97.9
[2023-03-25] MEDS: IPRATROPIUM/ALBUTEROL 0.5-3(2.5)MG/3ML NEB HHN SCH ×6 (00:58→20:27)
[2023-03-25 06:35] LABS: BASOPHILS % 0.6 % (0.0-2.0); DIFFERENTIAL COMMENT 0; EOSINOPHILS % 14.4 % (0.0-5.0); HEMATOCRIT. 40.8 % (36.0-48.0); HEMOGLOBIN. 12.6 g/dL (12.0-16.0); LYMPHOCYTES % 25.9 % (20.0-50.0); MEAN CORPUSCULAR HEMOGLOBIN 26.1 pg (28.0-32.0); MEAN CORPUSCULAR VOLUME 84.2 fL (81.0-99.0); MEAN PLATELET VOLUME 10.4 fl (7.4-10.4); MONOCYTES % 12.3 % (2.0-8.0); NEUTROPHILS % 46.8 % (40.0-76.0); PLATELET 167 x1000/uL (130-400); RED BLOOD CELL COUNT 4.84 mill/uL (4.2-5.4); RED CELL DISTRIBUTION WIDTH 18.4 % (11.6-14.6)
[2023-03-25 06:48] LABS: POTASSIUM 5.1 mEq/L (3.5-5.1)
[2023-03-25 06:58] LABS: CALCIUM 8.8 mg/dL (8.5-10.1); CREATININE 2.2 mg/dL (0.6-1.3)
[2023-03-25] MEDS: APIXABAN 5 MG TABLET PO SCH ×2 (09:00→17:54)
[2023-03-25] MEDS: FUROSEMIDE 40MG/4 ML UDC PO SCH (09:00)
[2023-03-25] MEDS: CARVEDILOL 12.5MG TABLET PO SCH ×2 (09:00→20:53)
[2023-03-25] MEDS: CEFTRIAXONE 1,000 MG in DEXTROSE 5% WATER 50 ML IV SCH (09:33)
[2023-03-25] MEDS: MIDODRINE HCL 2.5MG TABLET PO SCH ×3 (10:45→17:54)
[2023-03-25] MEDS: DILTIAZEM HCL 60MG TABLET PO SCH ×3 (12:00→17:54)
[2023-03-25] MEDS: DIGOXIN 125MCG TABLET PO SCH (17:54)
[2023-03-25] MEDS: ATORVASTATIN CALCIUM 40MG TABLET PO SCH (20:57)
[2023-03-26] VITALS (12 sets, daily range): BP systolic 95–151; BP diastolic 49–81; PULSE 49–116; RESP 18–22; TEMP 97.1–98; O2SAT 97
[2023-03-26] MEDS: IPRATROPIUM/ALBUTEROL 0.5-3(2.5)MG/3ML NEB HHN SCH ×5 (00:19→15:52)
[2023-03-26] MEDS: DILTIAZEM HCL 60MG TABLET PO SCH ×4 (06:09→18:00)
[2023-03-26 06:48] LABS: HEMATOCRIT. 38.1 % (36.0-48.0); HEMOGLOBIN. 12.5 g/dL (12.0-16.0); MEAN CORPUSCULAR HGB CONC 32.7 g/dL (31.0-37.0); MEAN CORPUSCULAR VOLUME 82.7 fL (81.0-99.0); PLATELET 178 x1000/uL (130-400); RED BLOOD CELL COUNT 4.61 mill/uL (4.2-5.4); RED CELL DISTRIBUTION WIDTH 18.2 % (11.6-14.6); WHITE BLOOD COUNT 5.1 x1000/uL (4.5-11.0)
[2023-03-26 06:50] LABS: DIFFERENTIAL COMMENT 1
[2023-03-26] MEDS: CEFTRIAXONE 1,000 MG in DEXTROSE 5% WATER 50 ML IV SCH (08:00)
[2023-03-26] MEDS: CARVEDILOL 12.5MG TABLET PO SCH (08:52)
[2023-03-26] MEDS: APIXABAN 5 MG TABLET PO SCH ×2 (08:54→17:53)
[2023-03-26] MEDS: MIDODRINE HCL 2.5MG TABLET PO SCH ×3 (08:55→17:53)
[2023-03-26 09:00] LABS: CALCIUM 8.4 mg/dL (8.5-10.1); POTASSIUM 5.2 mEq/L (3.5-5.1)
[2023-03-26] MEDS ORDERED: FUROSEMIDE 40MG/4 ML UDC PO SCH (09:00)
[2023-03-26 09:01] LABS: CREATININE 2.3 mg/dL (0.6-1.3); PHOSPHORUS 3.5 mg/dL (2.5-4.9)
[2023-03-26] MEDS ORDERED: SODIUM POLYSTYRENE SULFONATE 15 G/60 ML BOT PO SCH (11:00)
[2023-03-26] MEDS ORDERED: FURO40SO4 PO (15:58)
[2023-03-26 16:03] LABS: ANISOCYTOSIS 2+; PLATELET ESTIMATE NORMAL
[2023-03-26] MEDS: DIGOXIN 125MCG TABLET PO SCH (18:00)
[2023-03-27] MEDS ORDERED: FURO-151 MT (13:17)
== END 2023-03-26 19:02 | disposition home or self-care (01) | DRG 291 ==
LOC: ER 14:20 → EDBEDREQ 18:43 → EDBEDREQTM 18:43 → 7WST 03-21 00:39
PROVIDERS: ADMIT Internal Medicine; ATTEND Internal Medicine
DX: I13.0 Hypertensive heart and chronic kidney disease with heart failure and stage 1 through stage 4 chronic kidney disease, or unspecified chronic kidney disease (principal); I50.23 Acute on chronic systolic (congestive) heart failure; E44.0 Moderate protein-calorie malnutrition; N39.0 Urinary tract infection, site not specified; E11.22 Type 2 diabetes mellitus with diabetic chronic kidney disease; I42.9 Cardiomyopathy, unspecified; Z68.28 Body mass index [BMI] 28.0-28.9, adult; I48.91 Unspecified atrial fibrillation; E78.00 Pure hypercholesterolemia, unspecified; E87.5 Hyperkalemia; F17.200 Nicotine dependence, unspecified, uncomplicated; R79.1 Abnormal coagulation profile; I07.1 Rheumatic tricuspid insufficiency; N18.30 Chronic kidney disease, stage 3 unspecified; Z79.01 Long term (current) use of anticoagulants; Z82.49 Family history of ischemic heart disease and other diseases of the circulatory system; Z95.810 Presence of automatic (implantable) cardiac defibrillator
CPT/HCPCS: 36415; 71045; 80048; 80053; 80162; 80305; 81003; 82550; 82553; 83735; 83880; 84100; 84484; 85025; 87077; 93005; 93306; 94640; 97162; 97166; 99285; J0696; J1650; J1940; J7050; J7060